=== PATIENT | female | born 1955 | race Caucasian/White ===

== ENCOUNTER 2017-06-04 09:37 | Outpatient (CLI) | payer OTHER ==
--- NOTE | 2017-06-04 12:26 | MMO ---
BILATERAL DIGITAL SCREENING MAMMOGRAMS: Date: 06/04/17 HISTORY: 62-year-old female presents for baseline digital screening mammogram. COMPARISON: No prior mammograms available for comparison. FINDINGS: This patient's mammogram was interpreted with the assistance of computer-aided detection. Scattered areas of fibroglandular density noted bilaterally. No direct or indirect evidence of malign stephany in the breast. There are a few typically benign calcifications. IMPRESSION: BIRADS 2: Benign Finding(s) Continue routine screening. POS: LEONEL
== END 2017-06-04 09:38 | disposition home or self-care (01) ==
LOC: MAMMO 09:37
PROVIDERS: ATTEND Obstetrics & Gynecology
DX: Z12.31 Encounter for screening mammogram for malignant neoplasm of breast (principal)
CPT/HCPCS: 77067; G0202

== ENCOUNTER 2018-09-03 07:56 | Outpatient (CLI) | payer BC | END 2018-09-03 07:57 | disposition home or self-care (01) | LOC: BICMAMMO 07:56 | PROVIDERS: ATTEND Obstetrics & Gynecology | DX: Z12.31 Encounter for screening mammogram for malignant neoplasm of breast (principal) | CPT/HCPCS: 77063; 77067 ==

== ENCOUNTER 2020-04-27 07:49 | Outpatient (CLI) | payer BC, MEDICARE ==
--- NOTE | 2020-04-27 08:28 | MMO ---
Bilateral MAMMO Bilat Screen [facility]. CLINICAL HISTORY: Patient is 65 years old and is seen for screening. The patient has no family history of breast cancer. The patient has no personal history of cancer. VIEWS: The views performed were: bilateral craniocaudal with tomosynthesis and bilateral mediolateral oblique with tomosynthesis. FILMS COMPARED: The present examination has been compared to a prior imaging study performed at [facility] on 09/03/2018. This study has been interpreted with the assistance of computer-aided detection. MAMMOGRAM FINDINGS: There are scattered fibroglandular densities. There are no suspicious masses, suspicious calcifications, or new areas of architectural distortion. IMPRESSION: THERE IS NO MAMMOGRAPHIC EVIDENCE OF MALIGNANCY. A ROUTINE FOLLOW-UP MAMMOGRAM IN 1 YEAR IS RECOMMENDED. THE RESULTS OF THIS EXAM WERE SENT TO THE PATIENT. ACR BI-RADS Category 1 - Negative MAMMOGRAPHY NOTE: 1. A negative mammogram report should not delay a biopsy if a dominant of clinically suspicious mass is present. 2. Approximately 10% to 15% of breast cancers are not detected by mammography. 3. Adenosis and dense breasts may obscure an underlying neoplasm. Reported by: Adenike RAMIREZ Electonically Signed: [id number]
--- NOTE | 2020-04-27 10:41 | BD ---
DEXA BONE MINERAL DENSITY STUDY: HISTORY: Osteoporosis screening. COMPARISON: None. FINDINGS: Lumbar Spine: BMD (g/cm2) L1 1.089 T-Score: 0.9 2.5 L2 1.151 T-Score: 1.1 2.9 L3 1.333 T-Score: 2.3 4.1 L4 1.162 T-Score: 0.9 2.8 L1-L4 1.185 T-Score: 1.3 3.0 Wrist: Distal 0.427 T-Score: -0.3 -0.9 1/3 0.665 T-Score: -0.5 1.2 WHO classification normal. Impression: Normal bone mineral density. POS: OFF
== END 2020-04-27 07:50 | disposition home or self-care (01) ==
LOC: BICMAMMO 07:49
PROVIDERS: ATTEND Registered Nurse
DX: Z12.31 Encounter for screening mammogram for malignant neoplasm of breast (principal); Z13.820 Encounter for screening for osteoporosis; Z78.0 Asymptomatic menopausal state
CPT/HCPCS: 77063; 77067; 77080

== ENCOUNTER 2020-09-14 07:52 | Outpatient (CLI) | payer MEDICARE, BC ==
--- NOTE | 2020-09-14 09:16 | CT ---
Exam: Noncontrast chest CT; CT lung scan low dose HISTORY:Nicotine dependence, fullness smoker. COMPARISON: None TECHNIQUE: Low-dose screening lung CT is performed utilizing institutional protocol FINDINGS: Lung screening specific (LUNG-RADS): Category 1. Negative exam. No suspicious masses or nodules Potential significant incidentals (lung RADS category S): None Pulmonary incidentals:Minimal atelectasis and scarring Other incidentals: The sclerosis of a nonaneurysmal aorta hepatic steatosis IMPRESSION: 1. Lung RADS 1. Negative exam. 2. Lung Rask category S: Negative. No new or unknown potential significant incidental findings requir ing urgent additional evaluation 3. Other incidentals as above. Recommendation: Continued routine annual low-dose lung screening CT. Follow-up in one year.
== END 2020-09-14 07:53 | disposition home or self-care (01) ==
LOC: BICCT 07:52
PROVIDERS: ATTEND Registered Nurse
DX: Z12.2 Encounter for screening for malignant neoplasm of respiratory organs (principal); Z87.891 Personal history of nicotine dependence
CPT/HCPCS: 71271

== ENCOUNTER 2022-11-17 07:30 | Outpatient (CLI) | payer MEDICARE, BC | END 2022-11-17 07:31 | disposition home or self-care (01) | LOC: BICCT 07:30 | PROVIDERS: ATTEND Registered Nurse | DX: Z12.2 Encounter for screening for malignant neoplasm of respiratory organs (principal); Z87.891 Personal history of nicotine dependence | CPT/HCPCS: 71271 ==

== ENCOUNTER 2023-01-05 14:26 | Outpatient (CLI) | payer MEDICARE, BC | END 2023-01-05 14:27 | disposition home or self-care (01) | LOC: BICMAMMO 14:26 | PROVIDERS: ATTEND Registered Nurse | DX: Z12.31 Encounter for screening mammogram for malignant neoplasm of breast (principal) | CPT/HCPCS: 77063; 77067 ==

== ENCOUNTER 2025-03-17 12:03 | Outpatient (CLI) | payer MEDICARE, BC | END 2025-03-17 12:04 | disposition home or self-care (01) | LOC: BICMAMMO 12:03 | PROVIDERS: ATTEND Internal Medicine | DX: C50.812 Malignant neoplasm of overlapping sites of left female breast (principal); Z79.818 Long term (current) use of other agents affecting estrogen receptors and estrogen levels; M85.851 Other specified disorders of bone density and structure, right thigh; M85.852 Other specified disorders of bone density and structure, left thigh | CPT/HCPCS: 77080 ==